=== PATIENT | female | born 1955 | race Caucasian/White ===

== ENCOUNTER 2017-09-10 19:31 | Inpatient (IN) | payer OTHER ==
[~2017-09-10] VITALS: Ht 165.1 cm; Wt 151.7 kg
[~2017-09-10 19:31] MED LIST: GLIPIZIDE10 MG PO; HYDROCHLOROTHIA25 MG; HYDROCHLOROTHIA25 MG PO; LISINOPRIL40 MG PO; LOPRESSOR100 M1 PO; METFORMIN HCL1000 M1 PO; SIMVASTATIN40 MG; SIMVASTATIN40 MG PO
[2017-09-10 20:10] LABS: BASE EXCESS -5.3 mEq/L (-3 to +3); CARBOXY HGB 1.3 % (0-5); COMMENTS - BLOOD GASES C+A+; DEVICE 980 VENT; FI02 100 %; METHEMOGLOBIN 0.6 % (0-1.5); MODE SPONT NIPPV; PCO2 49 mm Hg (35-45); PEEP 5 CM/H20; PO2 308 mm Hg (80-100); PRES. SUPPORT 15 CM/H2O; SITE LR; TOTAL RESP RATE 30 resp/min; pH 7.26 (7.35-7.45)
[2017-09-10 20:22] LABS: BASOPHIL (%) 0.5 % (0-1); EOSINOPHIL COUNT 0.2 K/uL (0-0.3); HEMATOCRIT 39.7 % (36.0-46.0); HEMOGLOBIN 13.1 G/DL (11.9-15.5); IMMATURE GRANULOCYTE (%) 0.4 % (0.0-0.7); LYMPHOCYTE (%) 42.6 % (15-42); LYMPHOCYTE COUNT 3.1 K/uL (1.0-2.8); MCH 30.7 PG (29.0-34.0); MONOCYTE (%) 6.4 % (3-12); MONOCYTE COUNT 0.5 K/uL (0-0.8); NEUTROPHIL (%) 48.1 % (45-76); NEUTROPHIL COUNT 3.5 K/uL (1.8-6.4); PLATELET COUNT 118 K/uL (156-360); RBC DIS.WIDTH-CV 13.7 % (11.8-14.6); RBC DIS.WIDTH-SD 46.6 % (39-53); RED BLOOD COUNT 4.27 M/uL (3.80-5.20); WHITE BLOOD COUNT 7.3 K/uL (4.1-10.2)
[2017-09-10 20:31] LABS: CHLORIDE 107 mEq/L (99-109); POTASSIUM 4.4 mEq/L (3.7-5.4); PTT 25.8 SEC (25-37); SODIUM 139 mEq/L (136-147)
[2017-09-10 20:32] LABS: MAGNESIUM 1.7 mg/dL (1.3-2.7)
[2017-09-10 20:33] LABS: GLUCOSE 309 mg/dL (70-99)
[2017-09-10 20:37] LABS: GFR ESTIMATE (CALCULATED) 27 mL/min/
[2017-09-10 20:38] LABS: UREA NITROGEN (BUN) 51 mg/dL (9-23)
[2017-09-10 20:43] LABS: TROP-I INTERPRETATION NEGATIVE; TROPONIN-I 0.21 ng/mL (0.0-0.30)
[2017-09-10 21:34] LABS: BASE EXCESS -3.1 mEq/L (-3 to +3); BICARBONATE 23.6 mEq/L (22-26); CARBOXY HGB 1.4 % (0-5); DEVICE HHFNC; FI02 100 %; METHEMOGLOBIN 0.9 % (0-1.5); O2 FLOW 50 L/MIN; PCO2 48 mm Hg (35-45); PO2 151 mm Hg (80-100); SITE RR; TOTAL RESP RATE 28 resp/min
[2017-09-10] MEDS ORDERED: ACTOS30 MG PO (21:57)
[2017-09-10] MEDS ORDERED: SYNTHROID125 MCG PO (21:58)
[2017-09-10] MEDS ORDERED: LYRICA75 MG PO (21:58)
[2017-09-10] MEDS ORDERED: TRICOR145 MG PO (21:59)
[2017-09-10] MEDS ORDERED: LANTUS 10100 UNITS/ SC (22:00)
[2017-09-10] MEDS ORDERED: KLONOPIN0.5 M1 PO (22:02)
[2017-09-10] MEDS ORDERED: LITE COAT ASPI325 M1 PO (22:03)
[2017-09-10 23:04] LABS: INTER. NORMALIZED RATIO 1.1
[2017-09-10 23:10] VITALS: BP 114/57
[2017-09-10 23:18] LABS: PTT 142.8 SEC (25-37)
[2017-09-11 01:00] LABS: TROP-I INTERPRETATION POSITIVE; TROPONIN-I 12.31 ng/mL (0.0-0.30)
[2017-09-11 03:36] VITALS: BP 109/60
[2017-09-11 04:24] LABS: BASOPHIL (%) 0.3 % (0-1); EOSINOPHIL (%) 0.2 % (0-5); HEMATOCRIT 33.9 % (36.0-46.0); HEMOGLOBIN 11.4 G/DL (11.9-15.5); IMMATURE GRANULOCYTE (%) 0.3 % (0.0-0.7); LYMPHOCYTE (%) 17.2 % (15-42); LYMPHOCYTE COUNT 1.7 K/uL (1.0-2.8); MCH 31.2 PG (29.0-34.0); MCHC 33.6 G/DL (30.0-36.0); MCV 92.9 FL (83-99); MONOCYTE (%) 6.6 % (3-12); MONOCYTE COUNT 0.7 K/uL (0-0.8); NEUTROPHIL (%) 75.4 % (45-76); NEUTROPHIL COUNT 7.5 K/uL (1.8-6.4); PLATELET COUNT 85 K/uL (156-360); RBC DIS.WIDTH-CV 13.7 % (11.8-14.6); RBC DIS.WIDTH-SD 46.8 % (39-53); RED BLOOD COUNT 3.65 M/uL (3.80-5.20)
[2017-09-11 06:05] LABS: TROP-I INTERPRETATION POSITIVE; TROPONIN-I 22.04 ng/mL (0.0-0.30)
[2017-09-11 07:15] VITALS: BP 104/52
[2017-09-11 07:59] LABS: ALBUMIN 3.4 G/DL (3.2-4.8); ALKALINE PHOSPHATASE 25 IU/L (3-129); ALT (GPT) 26 IU/L (3-49); AST (GOT) 83 IU/L (2-34); CHLORIDE 109 MEQ/L (99-109); GFR ESTIMATE (CALCULATED) 37 mL/min/; GLUCOSE 163 mg/dL (70-99); HDL CHOLESTEROL 47 MG/DL (Desirable>=50); LDL CHOLESTEROL 143 mg/dL (Desirable<100); NON-HDL CHOLESTEROL 167 mg/dL (Desirable<160); POTASSIUM 4.4 MEQ/L (3.7-5.4); SODIUM 142 MEQ/L (136-147); TOTAL BILIRUBIN 0.3 MG/DL (0.0-1.0); TOTAL CHOLESTEROL 214 mg/dL (Desirable<200); TOTAL PROTEIN 6.8 G/DL (6.4-8.3); TRIGLYCERIDES 120 MG/DL (Normal: <150); UREA NITROGEN (BUN) 59 mg/dL (9-23)
[2017-09-11 08:18] LABS: CREATININE 1.5 MG/DL (0.6-1.3)
[2017-09-11 09:27] LABS: THYROTROPIN (TSH) 1.7 MIU/L (0.4-5.5)
[2017-09-11 14:05] VITALS: BP 124/57; BP 126/59
[2017-09-11 16:08] VITALS: BP 129/60
[2017-09-11 19:12] VITALS: BP 103/53
[2017-09-11 23:36] VITALS: BP 97/54
[2017-09-12 03:00] VITALS: BP 100/51
[2017-09-12 06:12] LABS: CHLORIDE 107 MEQ/L (99-109); CREATININE 1.1 MG/DL (0.6-1.3); GFR ESTIMATE (CALCULATED) 53 mL/min/; GLUCOSE 167 mg/dL (70-99); POTASSIUM 3.6 MEQ/L (3.7-5.4); SODIUM 140 MEQ/L (136-147); UREA NITROGEN (BUN) 59 mg/dL (9-23)
[2017-09-12 07:15] VITALS: BP 105/57
[2017-09-12 12:15] VITALS: BP 97/53
[2017-09-12 14:43] VITALS: BP 125/61
== END 2017-09-12 18:11 | disposition short-term general hospital (02) | DRG 280 ==
LOC: EME → EDBD 19:31 → EME 19:31 → EDOF 21:50 → 4EAST 21:50 → ENRESERV 21:53 → 4EAST 23:09
PROVIDERS: Emergency Medicine; Family Medicine; Internal Medicine Pulmonary Disease
DX: I21.4 Non-ST elevation (NSTEMI) myocardial infarction (principal); I25.10 Atherosclerotic heart disease of native coronary artery without angina pectoris; I11.0 Hypertensive heart disease with heart failure; I50.31 Acute diastolic (congestive) heart failure; N17.9 Acute kidney failure, unspecified; J18.9 Pneumonia, unspecified organism; R04.0 Epistaxis; R06.03 Acute respiratory distress; E11.40 Type 2 diabetes mellitus with diabetic neuropathy, unspecified; E78.5 Hyperlipidemia, unspecified; E03.9 Hypothyroidism, unspecified; F17.200 Nicotine dependence, unspecified, uncomplicated; E66.01 Morbid (severe) obesity due to excess calories; Z68.43 Body mass index [BMI] 50.0-59.9, adult; I25.2 Old myocardial infarction; Z95.5 Presence of coronary angioplasty implant and graft; Z79.4 Long term (current) use of insulin; Z79.82 Long term (current) use of aspirin; Z87.442 Personal history of urinary calculi; Z75.1 Person awaiting admission to adequate facility elsewhere
CPT/HCPCS: 36600; 71045; 71250; 80048; 80053; 80061; 82803; 82948; 83036; 83735; 83880; 84145 90; 84439; 84443; 84484; 85025; 85027; 85347; 85610; 85730; 87040; 87449; 87502; 93005; 93306; 94002; 94799; 99281; 99285; C1769; C1887; J0696; J1644; J1815; J1940; J2250; J2270; J3010; J7040